=== PATIENT | male | born 1960 | race Caucasian/White ===

== ENCOUNTER 2019-07-19 08:55 | Inpatient (IN) ==
[2019-07-19] MEDS ORDERED: fentaNYL 100 MCG/2 ML VIAL IV STA (09:35)
[2019-07-19] MEDS ORDERED: ONDANSETRON 4 MG/2 ML VIAL IV STA (09:35)
[2019-07-19 09:50] LABS: Amorphous Crystals,Urine Occasional /HPF (Few); Apearance,Urine CLOUDY (Clear); Bilirubin,Urine Negative (Negative); Blood, Urine Large mg/dL (Negative); Glucose,Urine (UA) Negative (Negative); Ketones,Urine Negative (Negative); Mucus,Urine Occasional /LPF (Occasional); Nitrite,Urine Negative (Negative); Protein,Urine 100 MG/DL; RBC,Urine 477 /HPF (0-4); Sperm,Urine Occasional /HPF (Negative); Urine Color Yellow (Yellow); Urine Specific Gravity 1.014 (1.001-1.035); Urine Urobilinogen < 2.0 EU/DL (0.2-1.0); WBC,Urine 130 /HPF (0-6)
[2019-07-19 10:53] LABS: INR 1.1; PT Patient Result 11.5 SECS (9.6-12.2); Partial Thromboplastin Time 25.9 SECS (20.8-36.0)
[2019-07-19 10:56] LABS: Basophils # 0.1 10*3/uL (0.0-0.2); Basophils % 0.2 % (0.0-0.8); Eosinophils # 0.1 10*3/uL (0.0-0.87); Eosinophils % 0.4 % (0.00-10.9); Hematocrit 32.3 VOL% (42.0-52.0); Hemoglobin 10.4 GM/DL (14.0-18.0); Immature Granulocytes % 0.9 %; Lymphocytes # 0.7 10*3/uL (1.4-4.0); Lymphocytes % 2.1 % (21.2-54.2); Mean Corpuscular HGB Conc 32.2 GM/DL (32-36); Mean Corpuscular Volume 91.8 FL (87-102); Mean Platelet Volume 9.3 FL (9.6-12.0); Monocytes % 6.1 % (1.7-12.7); Neutrophils % 90.3 % (38.7-73.9); Platelet Count 352 T/CUMM (130-400); Red Blood Count 3.52 MC/CUMM (3.8-5.5); Red Cell Distribution Width 17.4 % (9.3-17.3)
[2019-07-19 11:00] LABS: Albumin 2.6 G/DL (3.4-5.0); Bilirubin,Total 1.3 MG/DL (0.2-1.0); Calcium 8.6 MG/DL (8.5-10.1); Total Protein 7.1 G/DL (6.4-8.3)
[2019-07-19 11:02] LABS: White Blood Count 32.1 T/CUMM (4-12)
[2019-07-19 11:15] LABS: Band Neutrophils 21 % (0-10); Eosinophils 1 % (0-10); Lymphocytes 1 % (20-55); Segmented Neutrophils 69 % (50-85); Total Cells Counted 100
[2019-07-19 11:16] LABS: Anisocytosis 1+; Platelet Estimate Normal
[2019-07-19 11:17] LABS: Polychromasia Slight
[2019-07-19] MEDS ORDERED: GENTAMICIN INJ 120 MG in SODIUM CHLORIDE 0.9% 100 ML IV STA (11:24)
[2019-07-19] MEDS ORDERED: GENTAMICIN 80 MG/2 ML VIAL ONE (11:36)
[2019-07-19] MEDS ORDERED: THIAMINE 200 MG/2 ML VIAL IV STA (12:34)
[2019-07-19] MEDS ORDERED: AZTREONAM 1,000 MG VIAL ONE (12:43)
[2019-07-19] MEDS ORDERED: AZTREONAM 2,000 MG in SODIUM CHLORIDE 0.9% 100 ML IV STA (13:04)
[2019-07-19] MEDS: ALBUTEROL/IPRATROPIUM 3 ML NEB RESP TX SCH ×2 (15:59→19:17)
[2019-07-19] MEDS: FERROUS SULFATE 325 MG TABLET PO SCH ×2 (16:43→22:08)
[2019-07-19] MEDS: GABAPENTIN 100 MG CAPSULE PO SCH ×2 (16:43→22:08)
[2019-07-19] MEDS: VANCOMYCIN INJ 1,000 MG in SODIUM CHLORIDE 0.9% 250 ML IV SCH (16:44)
[2019-07-19] MEDS ORDERED: ACETAMINOPHEN 325 MG TABLET PO PRN (16:48)
[2019-07-19] MEDS: AZTREONAM 2,000 MG in SYRINGE 1 EACH IV SCH (22:07)
[2019-07-19] MEDS: TAMSULOSIN 0.4 MG CAPSULE PO SCH (22:08)
[2019-07-19] MEDS: ATORVASTATIN 40 MG TABLET PO SCH (22:08)
[2019-07-19] MEDS: PANTOPRAZOLE 40 MG TABLET PO SCH (22:08)
[2019-07-19] MEDS: METOPROLOL TARTRATE 100 MG TABLET PO SCH (22:08)
[2019-07-19] MEDS: DOCUSATE SODIUM 100 MG CAPSULE PO SCH (22:09)
[2019-07-19] MEDS: ZINC OXIDE PASTE 113 GM TUBE TOP SCH (22:10)
[2019-07-20] MEDS: ALBUTEROL/IPRATROPIUM 3 ML NEB RESP TX SCH ×4 (01:02→20:12)
[2019-07-20] MEDS: AZTREONAM 2,000 MG in SYRINGE 1 EACH IV SCH ×4 (02:13→20:52)
[2019-07-20] MEDS: VANCOMYCIN INJ 1,000 MG in SODIUM CHLORIDE 0.9% 250 ML IV SCH ×2 (02:39→13:50)
[2019-07-20 06:00] LABS: Basophils # 0.1 10*3/uL (0.0-0.2); Basophils % 0.3 % (0.0-0.8); Eosinophils # 0.9 10*3/uL (0.0-0.87); Eosinophils % 4.4 % (0.00-10.9); Hemoglobin 10.3 GM/DL (14.0-18.0); Immature Granulocytes % 0.9 %; Immature Granulocytes Absolute 0.18 #; Mean Corpuscular HGB Conc 31.2 GM/DL (32-36); Mean Corpuscular Volume 94.3 FL (87-102); Monocytes % 4.5 % (1.7-12.7); Neutrophils % 84.9 % (38.7-73.9); Platelet Count 307 T/CUMM (130-400); Red Cell Distribution Width 17.4 % (9.3-17.3); White Blood Count 20.7 T/CUMM (4-12)
[2019-07-20 06:28] LABS: Eosinophils 4 % (0-10); Hypochromasia 1+; Lymphocytes 3 % (20-55); Platelet Estimate Adequate; Segmented Neutrophils 88 % (50-85); Total Cells Counted 100
[2019-07-20 06:29] LABS: Ovalocytes Slight
[2019-07-20] MEDS: LEVOTHYROXINE 50 MCG TABLET PO SCH (06:29)
[2019-07-20 06:43] LABS: Albumin 2.4 G/DL (3.4-5.0); Bilirubin,Total 1.5 MG/DL (0.2-1.0); Calcium 8.7 MG/DL (8.5-10.1); Free T4 (Free Thyroxine) 1.4 NG/DL (0.76-1.46); Osmolality,Calculated 269.2 MOS/KG (273-304); Risk Ratio 3.61; Thyroid Stimulating Hormone 2.87 uIU/ml (0.358-3.74); Total Protein 6.8 G/DL (6.4-8.3); VLDL CHOLESTEROL 26.2 MG/DL
[2019-07-20] MEDS: CILOSTAZOL 100 MG TABLET PO SCH (09:04)
[2019-07-20] MEDS: LISINOPRIL 2.5 MG TABLET PO SCH (09:04)
[2019-07-20] MEDS: DOCUSATE SODIUM 100 MG CAPSULE PO SCH ×2 (09:04→20:46)
[2019-07-20] MEDS: FERROUS SULFATE 325 MG TABLET PO SCH ×3 (09:05→20:47)
[2019-07-20] MEDS: METOPROLOL TARTRATE 100 MG TABLET PO SCH ×2 (09:05→20:47)
[2019-07-20] MEDS: GABAPENTIN 100 MG CAPSULE PO SCH ×3 (09:06→20:48)
[2019-07-20] MEDS: ASPIRIN EC 325 MG TABLET PO SCH (09:07)
[2019-07-20] MEDS: DILTIAZEM CD 120 MG CAPSULE PO SCH (09:07)
[2019-07-20] MEDS: THIAMINE 200 MG/2 ML VIAL IV SCH (09:10)
[2019-07-20] MEDS: ZINC OXIDE PASTE 113 GM TUBE TOP SCH ×2 (09:13→20:50)
[2019-07-20] MEDS ORDERED: MAGNESIUM SULF RIDER 2 GM in PREMIX 1 EACH IV PRN (09:52)
[2019-07-20] MEDS ORDERED: MAGNESIUM SULF RIDER 4 GM in PREMIX 1 EACH IV PRN (09:52)
[2019-07-20] MEDS: POTASSIUM CHLORIDE RIDER 10 MEQ in PREMIX 1 EACH IV PRN ×4 (10:47→17:14)
[2019-07-20] MEDS: ATORVASTATIN 40 MG TABLET PO SCH (20:47)
[2019-07-20] MEDS: PANTOPRAZOLE 40 MG TABLET PO SCH (20:47)
[2019-07-20] MEDS: TAMSULOSIN 0.4 MG CAPSULE PO SCH (20:48)
[2019-07-21] MEDS: AZTREONAM 2,000 MG in SYRINGE 1 EACH IV SCH ×4 (02:43→20:25)
[2019-07-21] MEDS: ALBUTEROL/IPRATROPIUM 3 ML NEB RESP TX SCH ×4 (02:47→20:40)
[2019-07-21] MEDS: VANCOMYCIN INJ 1,000 MG in SODIUM CHLORIDE 0.9% 250 ML IV SCH (03:04)
[2019-07-21] MEDS: LEVOTHYROXINE 50 MCG TABLET PO SCH (05:29)
[2019-07-21 06:39] LABS: Basophils % 0.3 % (0.0-0.8); Eosinophils # 1.3 10*3/uL (0.0-0.87); Eosinophils % 12.5 % (0.00-10.9); Hematocrit 27.1 VOL% (42.0-52.0); Hemoglobin 8.6 GM/DL (14.0-18.0); Immature Granulocytes % 0.7 %; Immature Granulocytes Absolute 0.07 #; Lymphocytes # 0.8 10*3/uL (1.4-4.0); Lymphocytes % 7.5 % (21.2-54.2); Mean Corpuscular HGB Conc 31.7 GM/DL (32-36); Mean Corpuscular Volume 92.2 FL (87-102); Mean Platelet Volume 9.1 FL (9.6-12.0); Monocytes % 4.1 % (1.7-12.7); Neutrophils % 74.9 % (38.7-73.9); Platelet Count 291 T/CUMM (130-400); Red Blood Count 2.94 MC/CUMM (3.8-5.5); Red Cell Distribution Width 16.9 % (9.3-17.3); White Blood Count 10.1 T/CUMM (4-12)
[2019-07-21 06:59] LABS: Eosinophils 14 % (0-10); Hypochromasia 1+; Lymphocytes 9 % (20-55); Platelet Estimate Adequate; Segmented Neutrophils 73 % (50-85); Total Cells Counted 100
[2019-07-21 07:25] LABS: Albumin 2.2 G/DL (3.4-5.0); Bilirubin,Total 0.8 MG/DL (0.2-1.0); Osmolality,Calculated 277.5 MOS/KG (273-304); Total Protein 5.6 G/DL (6.4-8.3)
[2019-07-21] MEDS ORDERED: MAGNESIUM HYDROXIDE SUSP 30 ML UDCUP PO ONE (09:15)
[2019-07-21] MEDS ORDERED: BISACODYL 5 MG TABLET PO ONE (09:15)
[2019-07-21] MEDS: DOCUSATE SODIUM 100 MG CAPSULE PO SCH ×2 (10:46→20:20)
[2019-07-21] MEDS: THIAMINE 200 MG/2 ML VIAL IV SCH (10:47)
[2019-07-21] MEDS: FERROUS SULFATE 325 MG TABLET PO SCH ×3 (10:48→20:20)
[2019-07-21] MEDS: ASPIRIN EC 325 MG TABLET PO SCH (10:48)
[2019-07-21] MEDS: CILOSTAZOL 100 MG TABLET PO SCH (10:48)
[2019-07-21] MEDS: GABAPENTIN 100 MG CAPSULE PO SCH ×3 (10:48→20:20)
[2019-07-21] MEDS: DILTIAZEM CD 120 MG CAPSULE PO SCH (10:48)
[2019-07-21] MEDS: METOPROLOL TARTRATE 100 MG TABLET PO SCH ×2 (10:48→20:20)
[2019-07-21] MEDS: LISINOPRIL 2.5 MG TABLET PO SCH (10:48)
[2019-07-21] MEDS: ZINC OXIDE PASTE 113 GM TUBE TOP SCH ×2 (10:53→20:20)
[2019-07-21] MEDS: PANTOPRAZOLE 40 MG TABLET PO SCH (20:20)
[2019-07-21] MEDS: TAMSULOSIN 0.4 MG CAPSULE PO SCH (20:21)
[2019-07-21] MEDS: ATORVASTATIN 40 MG TABLET PO SCH (20:21)
[2019-07-22] MEDS: ALBUTEROL/IPRATROPIUM 3 ML NEB RESP TX SCH ×4 (01:13→20:00)
[2019-07-22] MEDS: AZTREONAM 2,000 MG in SYRINGE 1 EACH IV SCH ×4 (01:31→20:47)
[2019-07-22 04:16] LABS: Basophils % 0.2 % (0.0-0.8); Eosinophils # 1.2 10*3/uL (0.0-0.87); Eosinophils % 13.7 % (0.00-10.9); Hematocrit 27.3 VOL% (42.0-52.0); Hemoglobin 8.8 GM/DL (14.0-18.0); Immature Granulocytes % 0.7 %; Immature Granulocytes Absolute 0.06 #; Lymphocytes # 0.9 10*3/uL (1.4-4.0); Lymphocytes % 10.6 % (21.2-54.2); Mean Corpuscular HGB Conc 32.2 GM/DL (32-36); Mean Corpuscular Volume 92.9 FL (87-102); Mean Platelet Volume 9.1 FL (9.6-12.0); Neutrophils % 69.8 % (38.7-73.9); Platelet Count 324 T/CUMM (130-400); Red Blood Count 2.94 MC/CUMM (3.8-5.5); Red Cell Distribution Width 16.9 % (9.3-17.3); White Blood Count 8.8 T/CUMM (4-12)
[2019-07-22 04:46] LABS: % Iron Saturation 38.6 % (18-50); Ferritin 184.4 ng/ml (26-388)
[2019-07-22 04:55] LABS: Eosinophils 10 % (0-10); Hypochromasia 1+; Lymphocytes 10 % (20-55); Ovalocytes Slight; Platelet Estimate Adequate; Segmented Neutrophils 76 % (50-85); Total Cells Counted 100
[2019-07-22 04:56] LABS: Albumin 2.2 G/DL (3.4-5.0); Bilirubin,Total 0.9 MG/DL (0.2-1.0); Calcium 8.7 MG/DL (8.5-10.1); Folate 5.9 NG/ML (5.4-24.0); Total Protein 6.2 G/DL (6.4-8.3)
[2019-07-22] MEDS: LEVOTHYROXINE 50 MCG TABLET PO SCH (05:24)
[2019-07-22] MEDS ORDERED: IRON SUCROSE 300 MG in SODIUM CHLORIDE 0.9% 100 ML IV ONE (08:00)
[2019-07-22] MEDS: GABAPENTIN 100 MG CAPSULE PO SCH ×3 (08:24→20:48)
[2019-07-22] MEDS: ASPIRIN EC 325 MG TABLET PO SCH (08:25)
[2019-07-22] MEDS: THIAMINE 200 MG/2 ML VIAL IV SCH (08:25)
[2019-07-22] MEDS: DILTIAZEM CD 120 MG CAPSULE PO SCH (08:25)
[2019-07-22] MEDS: CILOSTAZOL 100 MG TABLET PO SCH (08:25)
[2019-07-22] MEDS: LISINOPRIL 2.5 MG TABLET PO SCH (08:25)
[2019-07-22] MEDS: FERROUS SULFATE 325 MG TABLET PO SCH ×3 (08:25→20:48)
[2019-07-22] MEDS: METOPROLOL TARTRATE 100 MG TABLET PO SCH ×2 (08:25→20:48)
[2019-07-22] MEDS: DOCUSATE SODIUM 100 MG CAPSULE PO SCH ×2 (08:27→20:48)
[2019-07-22] MEDS: ZINC OXIDE PASTE 113 GM TUBE TOP SCH ×2 (08:30→20:46)
[2019-07-22] MEDS: TAMSULOSIN 0.4 MG CAPSULE PO SCH (20:48)
[2019-07-22] MEDS: ATORVASTATIN 40 MG TABLET PO SCH (20:48)
[2019-07-22] MEDS: PANTOPRAZOLE 40 MG TABLET PO SCH (20:48)
[2019-07-23] MEDS: ALBUTEROL/IPRATROPIUM 3 ML NEB RESP TX SCH ×2 (01:05→07:40)
[2019-07-23] MEDS: POTASSIUM CHLORIDE RIDER 10 MEQ in PREMIX 1 EACH IV PRN (02:55)
[2019-07-23] MEDS: AZTREONAM 2,000 MG in SYRINGE 1 EACH IV SCH ×2 (02:59→10:21)
[2019-07-23 05:34] LABS: Basophils % 0.4 % (0.0-0.8); Eosinophils % 12.8 % (0.00-10.9); Hematocrit 27.5 VOL% (42.0-52.0); Hemoglobin 8.6 GM/DL (14.0-18.0); Immature Granulocytes % 1.5 %; Immature Granulocytes Absolute 0.12 #; Lymphocytes # 0.9 10*3/uL (1.4-4.0); Mean Corpuscular HGB Conc 31.3 GM/DL (32-36); Mean Corpuscular Volume 92.9 FL (87-102); Monocytes % 5.3 % (1.7-12.7); Platelet Count 337 T/CUMM (130-400); Red Blood Count 2.96 MC/CUMM (3.8-5.5); White Blood Count 8.1 T/CUMM (4-12)
[2019-07-23] MEDS: LEVOTHYROXINE 50 MCG TABLET PO SCH (05:34)
[2019-07-23 05:59] LABS: Albumin 2.3 G/DL (3.4-5.0); Calcium 8.5 MG/DL (8.5-10.1); Total Protein 6.2 G/DL (6.4-8.3)
[2019-07-23 06:09] LABS: Eosinophils 14 % (0-10); Hypochromasia Slight; Lymphocytes 10 % (20-55); Metamyelocytes 1 %; Platelet Estimate Normal; Segmented Neutrophils 71 % (50-85); Total Cells Counted 100
[2019-07-23 07:53] VITALS: BP 167/75
[2019-07-23] MEDS: LISINOPRIL 2.5 MG TABLET PO SCH (09:58)
[2019-07-23] MEDS: FERROUS SULFATE 325 MG TABLET PO SCH (09:59)
[2019-07-23] MEDS: DOCUSATE SODIUM 100 MG CAPSULE PO SCH (09:59)
[2019-07-23] MEDS: DILTIAZEM CD 120 MG CAPSULE PO SCH (09:59)
[2019-07-23] MEDS: THIAMINE 200 MG/2 ML VIAL IV SCH ×2 (09:59→10:02)
[2019-07-23] MEDS: CILOSTAZOL 100 MG TABLET PO SCH (09:59)
[2019-07-23] MEDS: ASPIRIN EC 325 MG TABLET PO SCH (09:59)
[2019-07-23] MEDS: GABAPENTIN 100 MG CAPSULE PO SCH (09:59)
[2019-07-23] MEDS: METOPROLOL TARTRATE 100 MG TABLET PO SCH (09:59)
[2019-07-23] MEDS ORDERED: LINACLOTIDE 145 MCG CAPSULE PO SCH (10:00)
[2019-07-23] MEDS: ZINC OXIDE PASTE 113 GM TUBE TOP SCH (10:00)
[2019-07-28 00:31] LABS: CDT Result Positive (Negative); CDT Specimen Source STOOL
== END 2019-07-23 10:25 | DRG 466 ==
LOC: EDUNIT# → EDBD → N.ED 08:55 → SUATTDRO 12:29 → N.EDINP 12:29 → N.3E 14:23
PROVIDERS: ADMIT Internal Medicine; ATTEND Internal Medicine Cardiovascular Disease

== ENCOUNTER 2020-09-13 17:58 | Inpatient (IN) ==
[2020-09-13] MEDS ORDERED: DEXAMETHASONE 4 MG/1 ML VIAL IV STA ×2 (18:25→18:31)
[2020-09-13] MEDS ORDERED: ACETAMINOPHEN 500 MG TABLET PO STA (18:25)
[2020-09-13] MEDS ORDERED: SODIUM CHLORIDE 0.9% 500 ML IV STA (18:25)
[2020-09-13] MEDS ORDERED: VANCOMYCIN INJ 1,000 MG in SODIUM CHLORIDE 0.9% 250 ML IV STA (18:25)
[2020-09-13 18:36] LABS: Basophils % 0.1 % (0.0-0.8); Hematocrit 41.1 VOL% (42.0-52.0); Hemoglobin 13.8 GM/DL (14.0-18.0); Immature Granulocytes % 0.4 %; Immature Granulocytes Absolute 0.03 #; Lymphocytes # 0.4 10*3/uL (1.4-4.0); Lymphocytes % 5.7 % (21.2-54.2); Mean Corpuscular HGB Conc 33.6 GM/DL (32-36); Mean Corpuscular Volume 94.1 FL (87-102); Mean Platelet Volume 9.1 FL (9.6-12.0); Monocytes % 8.4 % (1.7-12.7); Neutrophils % 85.4 % (38.7-73.9); Platelet Count 232 T/CUMM (130-400); Red Blood Count 4.37 MC/CUMM (3.8-5.5); Red Cell Distribution Width 16.8 % (9.3-17.3); White Blood Count 7.4 T/CUMM (4-12)
[2020-09-13 18:56] LABS: Alanine Aminotransferase 29 U/L (16-61); Albumin 3.3 G/DL (3.4-5.0); Alkaline Phosphatase 75 U/L (45-117); Aspartate Amino Transferase 32 U/L (0-37); Blood Urea Nitrogen 32 MG/DL (7-18); Calcium 8.8 MG/DL (8.5-10.1); Carbon Dioxide 33 MMOL/L (21-32); Estimated Glom Filtration Rate 78 ML/MIN; Glucose 135 MG/DL (74-106); Osmolality,Calculated 268.8 MOS/KG (273-304); Sodium 130 MMOL/L (136-145); Troponin I 0.027 NG/ML (0.00-0.045)
[2020-09-13] MEDS ORDERED: SODIUM CHLORIDE 0.9% 1,000 ML IV STA (21:12)
[2020-09-13] MEDS ORDERED: DILTIAZEM 25 MG/5 ML VIAL IV ONE (21:50)
[2020-09-13] MEDS ORDERED: IBUPROFEN 800 MG TABLET ONE (22:05)
[2020-09-13] MEDS ORDERED: AMIODARONE 150 MG/3 ML VIAL ONE (22:05)
[2020-09-13] MEDS ORDERED: AMIODARONE 450 MG/9 ML VIAL IV ONE (22:05)
[2020-09-13] MEDS ORDERED: ONDANSETRON 4 MG/2 ML VIAL IV PRN (22:45)
[2020-09-13] MEDS ORDERED: PROMETHAZINE 25 MG/1 ML VIAL IM PRN (22:45)
[2020-09-13] MEDS ORDERED: ALBUTEROL 2.5 MG/3 ML NEB RESP TX PRN (22:45)
[2020-09-13] MEDS ORDERED: PANTOPRAZOLE 40 MG VIAL IV SCH (23:00)
[2020-09-13] MEDS ORDERED: METOPROLOL TARTRATE 5 MG/5 ML VIAL IV STA (23:22)
[2020-09-13] MEDS ORDERED: dilTIAZem Drip 125 MG/125 ML PREMIX IV SCH (23:30)
[2020-09-14] MEDS ORDERED: ALBUTEROL/IPRATROPIUM 3 ML NEB RESP TX SCH (01:00)
[2020-09-14] MEDS ORDERED: DILTIAZEM 50 MG/10 ML VIAL IV STA (01:10)
[2020-09-14] MEDS ORDERED: IBUPROFEN 800 MG TABLET PO STA (01:10)
[2020-09-14] MEDS ORDERED: AMIODARONE INJ 150 MG in DEXTROSE 5% 100 ML IV ONE (01:10)
[2020-09-14] MEDS ORDERED: AMIODARONE INJ 450 MG in DEXTROSE 5% 241 ML IV SCH (01:30)
[2020-09-14] MEDS: SODIUM CHLORIDE 0.9% 1,000 ML IV SCH ×4 (01:30→17:08)
[2020-09-14] MEDS: PHENYLEPHRINE DRIP 40 MG/250 ML PREMIX IV SCH (02:45)
[2020-09-14] MEDS ORDERED: ALBUTEROL INHALER 18 GM INH PRN (03:00)
[2020-09-14 04:44] LABS: ABG Base Excess 1.1 MMOL/L (-2.5-2.5); ABG HCO3 25.1 MMOL/L (20-26); ABG PCO2 37.9 MM HG (35-48); ABG PH 7.439 (7.35-7.45); ABG PO2 85.6 MM HG (80-95); ABG TCO2 26.3 MMOL/L (23-27); Allen Test Positive; Pt O2 Delivery Device CPAP
[2020-09-14 04:45] LABS: Basophils # 0.1 10*3/uL (0.0-0.2); Eosinophils # 0.2 10*3/uL (0.0-0.87); Eosinophils % 2.3 % (0.00-10.9); Hemoglobin 13.8 GM/DL (14.0-18.0); Immature Granulocytes % 0.9 %; Immature Granulocytes Absolute 0.08 #; Lymphocytes # 0.8 10*3/uL (1.4-4.0); Lymphocytes % 8.6 % (21.2-54.2); Mean Corpuscular HGB Conc 32.9 GM/DL (32-36); Mean Platelet Volume 9.6 FL (9.6-12.0); Monocytes % 6.6 % (1.7-12.7); Neutrophils % 80.6 % (38.7-73.9); Platelet Count 265 T/CUMM (130-400); Red Blood Count 4.33 MC/CUMM (3.8-5.5); White Blood Count 9.3 T/CUMM (4-12)
[2020-09-14 05:12] LABS: ABG Oxygen Saturation 96.8 % (95-100)
[2020-09-14 05:41] LABS: Calcium 8.2 MG/DL (8.5-10.1); Osmolality,Calculated 274.7 MOS/KG (273-304); Potassium 4.3 MMOL/L (3.5-5.1)
[2020-09-14] MEDS ORDERED: LEVOTHYROXINE 75 MCG TABLET PO SCH (06:00)
[2020-09-14] MEDS: ALBUTEROL INHALER 18 GM INH SCH ×3 (06:20→21:19)
[2020-09-14 06:52] LABS: Amorphous Crystals,Urine Occasional /HPF (Few); Bacteria,Urine Occasional /HPF (Few); Bilirubin,Urine Negative (Negative); Blood, Urine Negative (Negative); Glucose,Urine (UA) Negative (Negative); Hyaline Casts,Urine 4 /LPF (0-3); Ketones,Urine Negative (Negative); Mucus,Urine Occasional /LPF (Occasional); Nitrite,Urine Negative (Negative); Protein,Urine 30 MG/DL; RBC,Urine 2 /HPF (0-4); Squamous Epithelial Cell,Urine Occasional /HPF (0-10); Urine Appearance CLEAR (Clear); Urine Color Yellow (Yellow); Urine Urobilinogen < 2.0 EU/DL (0.2-1.0); WBC,Urine 1 /HPF (0-6)
[2020-09-14] MEDS ORDERED: LEVOFLOXACIN 750 MG TABLET PO SCH (08:00)
[2020-09-14] MEDS ORDERED: FERROUS SULFATE 325 MG TABLET PO SCH (08:00)
[2020-09-14] MEDS ORDERED: lisinopriL 2.5 MG TABLET PO SCH (08:00)
[2020-09-14] MEDS ORDERED: DEXAMETHASONE 4 MG TABLET PO SCH (08:00)
[2020-09-14] MEDS ORDERED: ASCORBIC ACID 500 MG TABLET PO SCH (08:00)
[2020-09-14] MEDS ORDERED: FUROSEMIDE 40 MG TABLET PO SCH (08:00)
[2020-09-14] MEDS ORDERED: GABAPENTIN 100 MG CAPSULE PO SCH (08:00)
[2020-09-14] MEDS ORDERED: CHOLECALCIFEROL 1,000 UNIT TABLET PO SCH (08:00)
[2020-09-14] MEDS: DOCUSATE SODIUM 100 MG CAPSULE PO SCH ×2 (08:10→21:19)
[2020-09-14] MEDS: APIXABAN 5 MG TABLET PO SCH ×2 (08:10→21:19)
[2020-09-14] MEDS: ZINC GLUCONATE 50 MG TABLET PO SCH (08:11)
[2020-09-14] MEDS: DILTIAZEM CD 120 MG CAPSULE PO SCH (08:12)
[2020-09-14] MEDS: BUDESONIDE/FORMOTEROL 160-4.5 INHALER 6 GM INH SCH ×2 (08:13→21:20)
[2020-09-14] MEDS: PANTOPRAZOLE 40 MG TABLET PO SCH (08:17)
[2020-09-14] MEDS: METOPROLOL TARTRATE 100 MG TABLET PO SCH ×2 (08:46→22:20)
[2020-09-14] MEDS ORDERED: [UNRECOGNIZED DRUG - OTHER] PO SCH (09:00)
[2020-09-14] MEDS ORDERED: ENOXAPARIN 40 MG/0.4 ML SYRINGE SUBCUT SCH (09:00)
[2020-09-14] MEDS ORDERED: DEXAMETHASONE INJ 6 MG in SODIUM CHLORIDE 0.9% 50 ML IV SCH (09:00)
[2020-09-14] MEDS: DEXAMETHASONE 10 MG/1 ML VIAL IV SCH (09:25)
[2020-09-14] MEDS: GABAPENTIN 100 MG CAPSULE PO SCH ×2 (09:25→21:19)
[2020-09-14] MEDS ORDERED: SODIUM CHLORIDE 0.9% 1,000 ML IV PRN (14:35)
[2020-09-14] MEDS ORDERED: PANTOPRAZOLE 40 MG TABLET PO SCH (20:00)
[2020-09-14] MEDS: TAMSULOSIN 0.4 MG CAPSULE PO SCH (21:19)
[2020-09-15] MEDS: ALBUTEROL INHALER 18 GM INH SCH ×4 (00:20→21:21)
[2020-09-15] MEDS: SODIUM CHLORIDE 0.9% 1,000 ML IV SCH ×4 (02:15→23:00)
[2020-09-15 05:08] LABS: Basophils % 0.1 % (0.0-0.8); Hematocrit 35.8 VOL% (42.0-52.0); Immature Granulocytes % 0.9 %; Immature Granulocytes Absolute 0.06 #; Lymphocytes # 0.4 10*3/uL (1.4-4.0); Lymphocytes % 5.1 % (21.2-54.2); Mean Corpuscular HGB Conc 33.5 GM/DL (32-36); Mean Corpuscular Volume 94.7 FL (87-102); Mean Platelet Volume 9.3 FL (9.6-12.0); Monocytes % 8.6 % (1.7-12.7); Neutrophils % 85.3 % (38.7-73.9); Platelet Count 207 T/CUMM (130-400); Red Blood Count 3.78 MC/CUMM (3.8-5.5); Red Cell Distribution Width 16.6 % (9.3-17.3); White Blood Count 6.8 T/CUMM (4-12)
[2020-09-15] MEDS: LEVOTHYROXINE 100 MCG VIAL IV SCH (07:57)
[2020-09-15] MEDS: METOPROLOL TARTRATE 100 MG TABLET PO SCH ×2 (07:58→21:21)
[2020-09-15] MEDS: DILTIAZEM CD 120 MG CAPSULE PO SCH (07:58)
[2020-09-15] MEDS: APIXABAN 5 MG TABLET PO SCH ×2 (07:58→21:21)
[2020-09-15] MEDS: DOCUSATE SODIUM 100 MG CAPSULE PO SCH ×2 (07:58→21:21)
[2020-09-15] MEDS: GABAPENTIN 100 MG CAPSULE PO SCH ×2 (07:59→22:03)
[2020-09-15] MEDS: PANTOPRAZOLE 40 MG TABLET PO SCH (07:59)
[2020-09-15] MEDS: cilostazoL 100 MG TABLET PO SCH (07:59)
[2020-09-15] MEDS: BUDESONIDE/FORMOTEROL 160-4.5 INHALER 6 GM INH SCH ×2 (07:59→21:22)
[2020-09-15] MEDS: DEXAMETHASONE 10 MG/1 ML VIAL IV SCH (07:59)
[2020-09-15] MEDS: ZINC GLUCONATE 50 MG TABLET PO SCH (07:59)
[2020-09-15] MEDS ORDERED: REMDESIVIR 200 MG in SODIUM CHLORIDE 0.9% 210 ML IV ONE (09:00)
[2020-09-15] MEDS: PHENYLEPHRINE DRIP 40 MG/250 ML PREMIX IV SCH (13:33)
[2020-09-15] MEDS: TAMSULOSIN 0.4 MG CAPSULE PO SCH (21:21)
[2020-09-16] MEDS: ALBUTEROL INHALER 18 GM INH SCH ×4 (00:16→21:49)
[2020-09-16 06:05] LABS: Basophils % 0.2 % (0.0-0.8); Hematocrit 37.7 VOL% (42.0-52.0); Hemoglobin 12.1 GM/DL (14.0-18.0); Immature Granulocytes % 1.8 %; Immature Granulocytes Absolute 0.08 #; Lymphocytes # 0.5 10*3/uL (1.4-4.0); Lymphocytes % 9.9 % (21.2-54.2); Mean Corpuscular HGB Conc 32.1 GM/DL (32-36); Mean Corpuscular Volume 98.7 FL (87-102); Mean Platelet Volume 9.1 FL (9.6-12.0); Monocytes % 8.4 % (1.7-12.7); Neutrophils % 79.7 % (38.7-73.9); Platelet Count 195 T/CUMM (130-400); Red Blood Count 3.82 MC/CUMM (3.8-5.5); Red Cell Distribution Width 16.6 % (9.3-17.3); White Blood Count 4.5 T/CUMM (4-12)
[2020-09-16 06:39] LABS: Band Neutrophils 1 % (0-10); Hypochromasia 1+; Lymphocytes 15 % (20-55); Microcytosis 1+; Platelet Estimate Adequate; Segmented Neutrophils 80 % (50-85); Total Cells Counted 100
[2020-09-16] MEDS: LEVOTHYROXINE 100 MCG VIAL IV SCH (08:01)
[2020-09-16] MEDS: DILTIAZEM CD 120 MG CAPSULE PO SCH (08:01)
[2020-09-16] MEDS: APIXABAN 5 MG TABLET PO SCH ×2 (08:01→21:49)
[2020-09-16] MEDS: DOCUSATE SODIUM 100 MG CAPSULE PO SCH ×2 (08:01→21:49)
[2020-09-16] MEDS: ZINC GLUCONATE 50 MG TABLET PO SCH (08:02)
[2020-09-16] MEDS: DEXAMETHASONE 10 MG/1 ML VIAL IV SCH (08:02)
[2020-09-16] MEDS: METOPROLOL TARTRATE 100 MG TABLET PO SCH ×2 (08:02→21:49)
[2020-09-16] MEDS: BUDESONIDE/FORMOTEROL 160-4.5 INHALER 6 GM INH SCH ×2 (08:02→21:49)
[2020-09-16] MEDS: GABAPENTIN 100 MG CAPSULE PO SCH ×2 (08:03→21:50)
[2020-09-16] MEDS: PANTOPRAZOLE 40 MG TABLET PO SCH (08:03)
[2020-09-16] MEDS: SODIUM CHLORIDE 0.9% 1,000 ML IV SCH ×2 (09:45→15:18)
[2020-09-16] MEDS: REMDESIVIR 100 MG in SODIUM CHLORIDE 0.9% 100 ML IV SCH (09:45)
[2020-09-16] MEDS: TAMSULOSIN 0.4 MG CAPSULE PO SCH (21:49)
[2020-09-17] MEDS: ALBUTEROL INHALER 18 GM INH SCH ×4 (02:42→20:21)
[2020-09-17 05:06] LABS: Basophils % 0.2 % (0.0-0.8); Hematocrit 36.8 VOL% (42.0-52.0); Immature Granulocytes % 3.8 %; Immature Granulocytes Absolute 0.19 #; Lymphocytes # 0.5 10*3/uL (1.4-4.0); Lymphocytes % 10.3 % (21.2-54.2); Mean Corpuscular HGB Conc 32.6 GM/DL (32-36); Mean Corpuscular Volume 95.3 FL (87-102); Mean Platelet Volume 9.5 FL (9.6-12.0); Monocytes % 8.3 % (1.7-12.7); Neutrophils % 77.4 % (38.7-73.9); Platelet Count 231 T/CUMM (130-400); Red Blood Count 3.86 MC/CUMM (3.8-5.5); Red Cell Distribution Width 16.3 % (9.3-17.3); White Blood Count 5.1 T/CUMM (4-12)
[2020-09-17] MEDS: SODIUM CHLORIDE 0.9% 1,000 ML IV SCH ×2 (05:25→10:12)
[2020-09-17 05:28] LABS: Alanine Aminotransferase 23 U/L (16-61); Albumin 2.4 G/DL (3.4-5.0); Alkaline Phosphatase 59 U/L (45-117); Aspartate Amino Transferase 18 U/L (0-37); Bilirubin,Total < 0.39 MG/DL (0.2-1.0); Blood Urea Nitrogen 16 MG/DL (7-18); Calcium 8.1 MG/DL (8.5-10.1); Carbon Dioxide 30 MMOL/L (21-32); Estimated Glom Filtration Rate 124 ML/MIN; Ferritin 726.4 ng/ml (26-388); Glucose 232 MG/DL (74-106); Osmolality,Calculated 277.1 MOS/KG (273-304); Potassium 3.5 MMOL/L (3.5-5.1); Sodium 135 MMOL/L (136-145); Total Protein 6.4 G/DL (6.4-8.3)
[2020-09-17 05:48] LABS: % Iron Saturation 57.1 % (18-50)
[2020-09-17 06:10] LABS: Band Neutrophils 2 % (0-10); Hypochromasia 1+; Lymphocytes 14 % (20-55); Microcytosis 1+; Platelet Estimate Adequate; Segmented Neutrophils 77 % (50-85); Total Cells Counted 100
[2020-09-17] MEDS: LEVOTHYROXINE 100 MCG VIAL IV SCH (08:21)
[2020-09-17] MEDS: APIXABAN 5 MG TABLET PO SCH ×2 (08:21→20:21)
[2020-09-17] MEDS: DOCUSATE SODIUM 100 MG CAPSULE PO SCH ×2 (08:21→20:21)
[2020-09-17] MEDS: DILTIAZEM CD 120 MG CAPSULE PO SCH (08:21)
[2020-09-17] MEDS: GABAPENTIN 100 MG CAPSULE PO SCH ×2 (08:22→20:25)
[2020-09-17] MEDS: BUDESONIDE/FORMOTEROL 160-4.5 INHALER 6 GM INH SCH ×2 (08:22→20:22)
[2020-09-17] MEDS: ZINC GLUCONATE 50 MG TABLET PO SCH (08:22)
[2020-09-17] MEDS: DEXAMETHASONE 10 MG/1 ML VIAL IV SCH (08:22)
[2020-09-17] MEDS: METOPROLOL TARTRATE 100 MG TABLET PO SCH ×2 (08:22→20:21)
[2020-09-17] MEDS: PANTOPRAZOLE 40 MG TABLET PO SCH (08:24)
[2020-09-17] MEDS: REMDESIVIR 100 MG in SODIUM CHLORIDE 0.9% 100 ML IV SCH (09:46)
[2020-09-17] MEDS: TAMSULOSIN 0.4 MG CAPSULE PO SCH (20:21)
[2020-09-18] MEDS: ALBUTEROL INHALER 18 GM INH SCH ×4 (00:03→19:19)
[2020-09-18 05:24] LABS: Basophils % 0.3 % (0.0-0.8); Hemoglobin 13.1 GM/DL (14.0-18.0); Immature Granulocytes % 3.7 %; Immature Granulocytes Absolute 0.22 #; Lymphocytes # 0.5 10*3/uL (1.4-4.0); Lymphocytes % 8.8 % (21.2-54.2); Mean Corpuscular HGB Conc 32.8 GM/DL (32-36); Mean Platelet Volume 9.4 FL (9.6-12.0); Monocytes % 7.8 % (1.7-12.7); NRBC # 0.03 10*3/uL; Neutrophils % 79.4 % (38.7-73.9); Platelet Count 259 T/CUMM (130-400); Red Blood Count 4.21 MC/CUMM (3.8-5.5); Red Cell Distribution Width 16.3 % (9.3-17.3)
[2020-09-18] MEDS: cilostazoL 100 MG TABLET PO SCH (08:28)
[2020-09-18] MEDS: METOPROLOL TARTRATE 100 MG TABLET PO SCH ×2 (08:28→21:15)
[2020-09-18] MEDS: LEVOTHYROXINE 100 MCG VIAL IV SCH (08:28)
[2020-09-18] MEDS: ZINC GLUCONATE 50 MG TABLET PO SCH (08:28)
[2020-09-18] MEDS: APIXABAN 5 MG TABLET PO SCH ×2 (08:28→21:15)
[2020-09-18] MEDS: DOCUSATE SODIUM 100 MG CAPSULE PO SCH ×2 (08:28→21:14)
[2020-09-18] MEDS: DILTIAZEM CD 120 MG CAPSULE PO SCH (08:28)
[2020-09-18] MEDS: BUDESONIDE/FORMOTEROL 160-4.5 INHALER 6 GM INH SCH ×2 (08:28→21:15)
[2020-09-18] MEDS: DEXAMETHASONE 10 MG/1 ML VIAL IV SCH (08:28)
[2020-09-18] MEDS: PANTOPRAZOLE 40 MG TABLET PO SCH (08:29)
[2020-09-18] MEDS: GABAPENTIN 100 MG CAPSULE PO SCH ×2 (08:29→21:14)
[2020-09-18] MEDS: REMDESIVIR 100 MG in SODIUM CHLORIDE 0.9% 100 ML IV SCH (10:47)
[2020-09-18] MEDS: TAMSULOSIN 0.4 MG CAPSULE PO SCH (21:14)
[2020-09-19 05:30] LABS: Basophils % 0.3 % (0.0-0.8); Hematocrit 39.4 VOL% (42.0-52.0); Immature Granulocytes % 4.4 %; Immature Granulocytes Absolute 0.27 #; Lymphocytes # 0.7 10*3/uL (1.4-4.0); Lymphocytes % 11.1 % (21.2-54.2); Mean Corpuscular Volume 95.6 FL (87-102); Mean Platelet Volume 9.3 FL (9.6-12.0); Monocytes % 7.5 % (1.7-12.7); NRBC # 0.04 10*3/uL; Neutrophils % 76.7 % (38.7-73.9); Platelet Count 258 T/CUMM (130-400); Red Blood Count 4.12 MC/CUMM (3.8-5.5); Red Cell Distribution Width 16.2 % (9.3-17.3); White Blood Count 6.1 T/CUMM (4-12)
[2020-09-19 05:46] LABS: Calcium 8.7 MG/DL (8.5-10.1); Osmolality,Calculated 273.1 MOS/KG (273-304); Potassium 3.8 MMOL/L (3.5-5.1)
[2020-09-19] MEDS: ALBUTEROL INHALER 18 GM INH SCH ×4 (06:10→17:54)
[2020-09-19] MEDS: LEVOTHYROXINE 100 MCG VIAL IV SCH (06:12)
[2020-09-19] MEDS: PANTOPRAZOLE 40 MG TABLET PO SCH (10:17)
[2020-09-19] MEDS: DOCUSATE SODIUM 100 MG CAPSULE PO SCH ×2 (10:17→21:17)
[2020-09-19] MEDS: GABAPENTIN 100 MG CAPSULE PO SCH ×2 (10:17→21:18)
[2020-09-19] MEDS: ZINC GLUCONATE 50 MG TABLET PO SCH (10:17)
[2020-09-19] MEDS: METOPROLOL TARTRATE 100 MG TABLET PO SCH ×2 (10:18→21:17)
[2020-09-19] MEDS: DILTIAZEM CD 120 MG CAPSULE PO SCH (10:18)
[2020-09-19] MEDS: APIXABAN 5 MG TABLET PO SCH ×2 (10:18→21:17)
[2020-09-19] MEDS: DEXAMETHASONE 10 MG/1 ML VIAL IV SCH (10:19)
[2020-09-19] MEDS: REMDESIVIR 100 MG in SODIUM CHLORIDE 0.9% 100 ML IV SCH (10:19)
[2020-09-19] MEDS: BUDESONIDE/FORMOTEROL 160-4.5 INHALER 6 GM INH SCH ×2 (10:26→21:18)
[2020-09-19] MEDS: TAMSULOSIN 0.4 MG CAPSULE PO SCH (21:17)
[2020-09-19] MEDS ORDERED: ACETAMINOPHEN 325 MG TABLET PO PRN (21:40)
[2020-09-20] MEDS: ALBUTEROL INHALER 18 GM INH SCH ×2 (00:48→06:22)
[2020-09-20 06:05] LABS: Basophils % 0.3 % (0.0-0.8); Hematocrit 39.6 VOL% (42.0-52.0); Hemoglobin 13.4 GM/DL (14.0-18.0); Immature Granulocytes % 4.5 %; Immature Granulocytes Absolute 0.29 #; Lymphocytes # 0.7 10*3/uL (1.4-4.0); Lymphocytes % 10.3 % (21.2-54.2); Mean Corpuscular HGB Conc 33.8 GM/DL (32-36); Mean Corpuscular Volume 93.2 FL (87-102); Mean Platelet Volume 9.2 FL (9.6-12.0); NRBC # 0.03 10*3/uL; Neutrophils % 77.9 % (38.7-73.9); Platelet Count 275 T/CUMM (130-400); Red Blood Count 4.25 MC/CUMM (3.8-5.5); Red Cell Distribution Width 16.1 % (9.3-17.3); White Blood Count 6.4 T/CUMM (4-12)
[2020-09-20] MEDS: LEVOTHYROXINE 100 MCG VIAL IV SCH (06:22)
[2020-09-20 06:23] LABS: Calcium 8.6 MG/DL (8.5-10.1); Potassium 3.7 MMOL/L (3.5-5.1)
[2020-09-20] MEDS: PANTOPRAZOLE 40 MG TABLET PO SCH (08:54)
[2020-09-20] MEDS: GABAPENTIN 100 MG CAPSULE PO SCH (08:54)
[2020-09-20] MEDS: DILTIAZEM CD 120 MG CAPSULE PO SCH (08:54)
[2020-09-20] MEDS: METOPROLOL TARTRATE 100 MG TABLET PO SCH (08:54)
[2020-09-20] MEDS: cilostazoL 100 MG TABLET PO SCH (08:54)
[2020-09-20] MEDS: ZINC GLUCONATE 50 MG TABLET PO SCH (08:54)
[2020-09-20] MEDS: DEXAMETHASONE 10 MG/1 ML VIAL IV SCH (08:55)
[2020-09-20] MEDS: DOCUSATE SODIUM 100 MG CAPSULE PO SCH (08:55)
[2020-09-20] MEDS: BUDESONIDE/FORMOTEROL 160-4.5 INHALER 6 GM INH SCH (08:55)
[2020-09-20] MEDS: APIXABAN 5 MG TABLET PO SCH (08:55)
[2020-09-20 11:26] VITALS: BP 142/72
== END 2020-09-20 16:39 | DRG 137 ==
LOC: EDUNIT# → EDBD → N.ED 17:58 → N.EDINP 22:45 → SUATTDRO 22:45 → N.CC 09-14 02:06 → N.2E 09-14 16:17
PROVIDERS: ADMIT Internal Medicine; ATTEND Internal Medicine